=== PATIENT | male | born 1980 | race Caucasian/White ===

== ENCOUNTER 2022-11-11 16:40 | Emergency (ER) | payer SELFPAY ==
[2022-11-11 17:05] VITALS: BP 137/88; PULSE 93; RESP 20; TEMP 36.8; O2SAT 99; BMI 22.4
--- NOTE | 2022-11-11 17:13 | US_ITS ---
PROCEDURE INFORMATION: Exam: US Scrotum Exam date and time: 11/11/2022 5:21 PM Age: 41 years old Clinical indication: Edema; Additional info: Graciela TECHNIQUE: Imaging protocol: Real-time ultrasound of the scrotum and contents with color Doppler and image documentation. COMPARISON: No relevant prior studies available. FINDINGS: Right testicle: The right testicle measures 4 x 2.5 x 3.1 cm. Right testicular volume measures 16 mL. Normal. No mass. No torsion. Normal vascular flow. Left testicle: The left testicle measures 4.5 x 2.0 x 3.0 cm. Left testicular volume measures 13.7 mL. Normal. No mass. No torsion. Normal vascular flow. Epididymides: The right epididymal head measures 8.5 x 1.9 x 2.0 cm, and the left epididymal head measures 1.1 x 1.3 x 1.9 cm. The right epididymal tail appears heterogeneous and hypervascular raising the question of epididymitis. There is a 2.0 x 1.4 by 2.0 cm cyst within the right epididymal head with low-level particulate material suggesting cyst/spermatocele. There is a 5.6 x 4.5 mm left epididymal head cyst/spermatocele. Scrotum/soft tissues: No varicoceles. No significant hydroceles. IMPRESSION: 1. Normal appearance to the testes bilaterally. 2. Heterogeneity and hypervascularity involving the right epididymal tail suggesting epididymitis. 3. Spermatocele/epididymal cyst involving each epididymal head.
--- NOTE | 2022-11-11 18:28 | EXP.UTC ---
Discharge Plan Disposition Patient Disposition: Home, Self-Care Condition: Good Prescriptions Prescriptions: New sulfamethoxazole-trimethoprim [Bactrim DS] 800-160 mg tablet 1 tab PO Q12H 10 Days Qty: 20 0RF Referrals Follow up/Referrals: Provider,Referral, MD [Primary Care Provider] - See instructions Activity Restrictions/Add. Instructions Additional Instructions/Restrictions: If no improvement in 72hours go to PCP or return to [facility] Clinical Impressions Clinical Impression: Epididymitis Instructions Patient Instructions: DI for Epididymitis Discharge ED Provider[place] [facility] [place] General Stated complaint: Testicles swollen Mode of Arrival: Ambulatory Source of Information: Patient Limitations: No Limitations Time Seen by Provider: 11/11/22 17:06 Description of Symptoms (Recalled from Triage Doc. by RN): PATIENT C/O SWELLING IN TESTICLES THAT STARTED YESTERDAY HEENT Symptoms (Recalled from RN notes): No Resp Symptoms (Recalled from RN notes): No Skin Symptoms (Recalled from RN notes): No MS Symptoms (Recalled from RN notes): No Functional Status (Recalled from RN notes): WNL Related Data Previous Rx's Medication Instructions Recorded sulfamethoxazole 800 1 tab PO Q12H 10 days #20 tabs 11/11/22 mg-trimethoprim 160 mg tablet (Bactrim DS) Allergies Allergy/AdvReac Type Severity Reaction Status Date / Time Penicillins [PENICILLINS] Allergy Unknown SWELLING Verified 11/11/22 17:12 Worker's Comp Is this a Worker's Comp case?: No [facility] Disclaimer: The information contained in this section may have been updated after the patient was seen, as this information can be updated by other users. Medical History (Updated 11/11/22 @ 18:41 by Alisson Pugh APRN) Migraine Surgical History (Updated 11/11/22 @ 17:15 by Juju Casas RN) History of appendectomy Social History Smoking Status: Unknown if ever smoked alcohol intake: current current occupational status: employed Travel in the last 8 weeks: None ROS Obtained: Yes All systems reviewed & no additional complaints except as documented Constitutional Constitutional: Reports system reviewed and no additional complaints, except as documented Eyes Eyes: Reports system reviewed and no additional complaints, except as documented ENT Ears, Nose, Mouth, and Throat: Reports system reviewed and no additional complaints, except as documented Cardiovascular Cardiovascular: Reports system reviewed and no additional complaints, except as documented Respiratory Respiratory: Reports system reviewed and no additional complaints, except as documented Gastrointestinal Gastrointestingal: Reports system reviewed and no additional complaints, except as documented Genitourinary Male Genitourinary: Reports system reviewed and no additional complaints, except as documented, Reports scrotal swelling and Reports testicular pain Musculoskeletal Musculoskeletal: Reports system reviewed and no additional complaints, except as documented Integumentary/Breasts Skin/Breast: Reports system reviewed and no additional complaints, except as documented Neurologic Neurologic: Reports system reviewed and no additional complaints, except as documented Endocrine Endocrine: Reports system reviewed and no additional complaints, except as documented Hematologic/Lymphatic Henatologic/Lymphatic: Reports system reviewed and no additional complaints, except as documented Allergic/Immunologic Allergic/Immunologic: Reports system reviewed and no additional complaints, except as documented Physical Exam General General appearance: alert Comment: appears in pain Head Head exam: atraumatic and normocephalic Eye Eye exam: Present normal appearance ENT ENT exam: Present normal exam and normal oropharynx Neck Neck exam: Present normal inspection and full ROM Chest Chest inspection: Present normal inspection and symmetric chest wall rise Respirato
[2022-11-11 18:35] VITALS: BP 137/88; PULSE 93; RESP 20; TEMP 36.8; O2SAT 99
== END 2022-11-11 18:44 | disposition home or self-care (01) ==
PROVIDERS: Emergency Provider Nurse Practitioner Family
DX: N45.1 Epididymitis (principal)
CPT/HCPCS: 76870; 99204; 99212; G0463

== ENCOUNTER 2023-04-11 07:16 | Emergency (ER) | payer SELFPAY ==
[2023-04-11] VITALS (7 sets, daily range): BP systolic 121–143; BP diastolic 81–108; PULSE 75–110; RESP 18–20; TEMP 36.7–36.9; O2SAT 94–96; BMI 23.7
--- NOTE | 2023-04-11 07:33 | PC.NURSE ---
DR HEBERT AT BEDSIDE
--- NOTE | 2023-04-11 07:34 | CT_ITS ---
FINAL REPORT TECHNIQUE: Then section axial CT images of the chest were obtained with contrast. Three-D reformatted images were also obtained.This study was performed with techniques to keep radiation doses as low as reasonably achievable (ALARA). Individualized dose reduction techniques using automated exposure control or adjustment of mA and/or kV according to the patient''s size were employed. CLINICAL HISTORY: R posterior chest wall pain, worse with inspiratio COMPARISON: None FINDINGS: There is a segmental pulmonary embolus present in the right lower lobe. There is no evidence of right heart strain. There are bilateral lower lobe opacities, likely atelectasis, worse on the right than the left. In addition there is a wedge-shaped pulmonary opacity in the right lower lobe that may represent an infarct. There is no evidence of thoracic aortic aneurysm or dissection. There is no evidence of mediastinal or hilar mass or adenopathy. Limited images of the upper abdomen the gallbladder is partially collapsed with wall thickening. IMPRESSION: Segmental pulmonary embolus right lower lobe, without evidence of right heart strain. Bilateral lower lobe atelectasis worse on the right than on the left, as well as a wedge-shaped pulmonary opacity in the right lower lobe, question infarct. Would recommend follow-up CT if clinically indicated. Reviewed, Interpreted and Dictated by Shiv Petersen III, MD Transcribed by Zuri Morales Authenticated and [facility]
--- NOTE | 2023-04-11 07:38 | HMH.EDGENADL ---
Discharge Plan Disposition Patient Disposition: Home, Self-Care Condition: Good Prescriptions Prescriptions: New Xarelto 15 mg tablet 15 mg PO BID 21 Days Qty: 42 0RF No Action sulfamethoxazole-trimethoprim [Bactrim DS] 800-160 mg tablet 1 tab PO Q12H 10 Days Qty: 20 0RF Referrals Follow up/Referrals: Ronald Carmichael DO [Staff Physician] - See instructions Provider,Referral, [Primary Care Provider] - See instructions Activity Restrictions/Add. Instructions Additional Instructions/Restrictions: You were evaluated in the emergency department today. You were diagnosed with a blood clot in your right lung. 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 You will take 15 mg of Xarelto twice a day for 3 weeks. After this, this medication is typically continued at 20 mg once daily. It is important that you follow-up with her primary care provider for reassessment over the next 4 to 5 days. They can continue this medication for you. Unfortunately, we do not know why you have a blood clot in your lung. This makes it very important that you follow-up. Return to the emergency department for new or worsening symptoms, such as worsening chest pain, worsening shortness of breath, lightheadedness, or other concerns. Take Tylenol at home as needed for pain. Clinical Impressions Clinical Impression: Pulmonary embolism on right Instructions Patient Instructions: DI for Pulmonary Embolism Discharge ED Provider: Samantha Phelan General Adult HPI General Chief complaint: PAIN Stated complaint: rib pain, no accident Time Seen by Provider: 04/11/23 07:32 Mode of Arrival: Ambulatory Limitations: No Limitations Description of Symptoms (Recalled from ER Triage Doc. by RN): PT REPORTS RIGHT SIDED PAIN, NO ACCIDENT. STARTED YESTERDAY, FELT LIKE A AIR BUBBLE IN MY THROAT REPORTS PULLING PAIN THAT HAS WORSENED. DIFFICULTY TAKING A DEEP BREATH. DENIES CHEST PAIN. REPORTS SORE THROAT History of Present Illness HPI narrative: This patient is a 42-year-old male who reports smoking history but no other significant past medical history presenting to the emergency department for evaluation with concern for right posterior chest wall pain that is worse with inspiration. He reports that yesterday, he felt like there was a bubble stuck in his throat. The pain migrated to his right posterior chest wall, and is worse anytime he takes a deep breath. Nothing seems to make it better. He denies any recent fevers, chills, cough, congestion, abdominal pain, nausea, vomiting, changes in bowel movements, or other concerns. He has never experienced anything like this in the past. He denies any recent trauma. Related Data Previous Rx's Medication Instructions Recorded sulfamethoxazole 800 1 tab PO Q12H 10 days #20 tabs 11/11/22 mg-trimethoprim 160 mg tablet (Bactrim DS) rivaroxaban 15 mg tablet (Xarelto) 15 mg PO BID 21 days #42 tabs 04/11/23 Allergies Allergy/AdvReac Type Severity Reaction Status Date / Time Penicillins [PENICILLINS] Allergy Unknown SWELLING Verified 11/11/22 17:12 [facility] Disclaimer: The information contained in this section may have been updated after the patient was seen, as this information can be updated by other users. Medical History Migraine Surgical History History of appendectomy Social History Smoking Status: Current every day smoker alcohol intake: current current occupational status: employed Travel in the last 8 weeks: None ROS Obtained: Yes All systems reviewed & no additional complaints except as documented Physical Exam General General appearance: alert, in no apparent distress and anxious Head Head exam: atraumatic and normocephalic Eye Eye exam: Present normal appearance, PER
[2023-04-11 07:55] LABS: Basophils # 0.1 K/mm3 (0-0.2); Basophils % 0.6 % (0.1-2.0); Eosinophils # 0.2 K/mm3 (0.0-0.4); Eosinophils % 2.6 % (0.1-12.0); Hematocrit 44.9 % (42.0-52.0); Hemoglobin 15.5 g/dL (14.1-18.0); Lymphocytes # 1.9 K/mm3 (0.7-4.5); Lymphocytes % 23.7 % (10-50); Mean Corpuscular HGB Conc 34.4 g/dL (31.8-35.4); Mean Corpuscular Volume 89.9 fl (80-94); Mean Platelet Volume 8.1 fl (7.4-10.4); Monocytes # 0.5 K/mm3 (0.1-1.0); Monocytes % 6.7 % (1.7-9.3); Neutrophils # 5.4 K/mm3 (1.8-7.8); Neutrophils % 66.4 % (37.0-80.0); Platelet Count 167 K/mm3 (142-424); Red Blood Count 4.99 M/mm3 (4.60-6.20); Red Cell Distribution Width 13.9 % (11.5-17.5); White Blood Count 8.1 K/mm3 (4.8-10.8)
[2023-04-11 07:58] LABS: Chloride 103 mmol/L (98-107); Potassium 4.2 mmoL/L (3.5-5.1); Sodium 137 mmol/L (136-145)
[2023-04-11 08:01] LABS: Alanine Aminotransferase 34 U/L (12-78); Albumin Level 5.1 g/dl (3.5-5.0); Albumin/Globulin Ratio 1.5 (1.1-1.8); Alkaline Phosphatase 89 U/L (38-126); Anion Gap 9.2 mEq/L (5-15); Aspartate Amino Transferase 37 U/L (17-59); Bilirubin,Total 0.8 mg/dl (0.2-1.3); Blood Urea Nitrogen 11 mg/dl (9-20); Carbon Dioxide 29 mmol/L (22.0-30.0); Creatinine Clearance Estimated 153 mL/min (50-200); Estimated Glomerular Filt Rate 125 ml/min (>60); GFR (African American) 151 ML/MIN (>60); Globulin 3.5 g/dL (1.3-3.2); Total Protein,Serum 8.6 g/dl (6.3-8.2)
[2023-04-11 08:02] LABS: Calcium 9.1 mg/dl (8.4-10.2); Glucose 103 mg/dl (74-100)
--- NOTE | 2023-04-11 08:12 | ECG_ITS ---
APPROVED REPORT Exam: Resting ECG HR:90 bpm ECG Measurements Heart Rate 90 AXES OH 161 P 61 QRSd 90 QRS 61 QT 322 T 25 QTc 370 Conclusion SINUS RHYTHM NORMAL ECG UNCONFIRMED REPORT Electronically signed by : Jose A Morse MD 04/13/2023 21:42:42
[2023-04-11 08:14] LABS: Troponin I < 0.01 ng/ml (0.00-0.034)
--- NOTE | 2023-04-11 08:15 | PC.NURSE ---
PT TO CT
--- NOTE | 2023-04-11 08:29 | PC.NURSE ---
PT RETURNED FROM CT
--- NOTE | 2023-04-11 09:00 | PC.NURSE ---
ROUNDED ON PT, MORE COMFORTABLE. NO NEEDS AT THIS TIME. CALL LIGHT WITHIN REACH
--- NOTE | 2023-04-11 09:06 | PC.NURSE ---
DR HEBERT AT BEDSIDE TO UPDATE PT
--- NOTE | 2023-04-11 09:25 | PC.NURSE ---
1ST DOSE OF XARELTO GIVEN AT THIS TIME
== END 2023-04-11 09:30 | disposition home or self-care (01) ==
PROVIDERS: Emergency Provider Emergency Medicine
DX: I26.93 Single subsegmental thrombotic pulmonary embolism without acute cor pulmonale (principal); R07.89 Other chest pain; F17.210 Nicotine dependence, cigarettes, uncomplicated
CPT/HCPCS: 71275; 80053; 84484; 85025; 93005; 96374; 99285; Q9967